=== PATIENT | male | born 2000 ===

== ENCOUNTER 2023-01-23 08:22 | Emergency (ER) | payer MEDICAID ==
[~2023-01-23] VITALS: Ht 175.3 cm; Wt 77.3 kg
[2023-01-23] MEDS ORDERED: CLON-595 PO (08:58)
[2023-01-23] MEDS ORDERED: MIRT-89 PO (08:58)
[2023-01-23] MEDS ORDERED: OLAN10TA74 PO ×2 (08:58)
[2023-01-23] MEDS ORDERED: BUSP15 PO (08:58)
[2023-01-23] MEDS ORDERED: VALP250C48 PO (08:58)
[2023-01-23] MEDS ORDERED: PALI3TAB14 PO (08:58)
[2023-01-23] MEDS ORDERED: CLON-592 PO (08:58)
[2023-01-23 09:14] LABS: BASOPHILS % (AUTO) 0.6 % (0.0-2.0); EOSINOPHILS % (AUTO) 0.8 % (1.0-6.0); HEMATOCRIT 40.7 % (41-53); HEMOGLOBIN 13.9 g/dL (13.5-17.5); LYMPHOCYTES # (AUTO) 2.1 K/uL (1.0-4.8); MEAN CORPUSCULAR HEMOGLOBIN 31.4 pg (26.0-34.0); MEAN CORPUSCULAR HGB CONC 34.2 G/dL (31.0-37.0); MEAN CORPUSCULAR VOLUME 92 fL (80-100); MONOCYTES # (AUTO) 0.5 K/uL (0.1-1.0); MONOCYTES % (AUTO) 7.3 % (2.0-9.0); NEUTROPHILS # (AUTO) 3.8 K/uL (1.8-7.7); NEUTROPHILS % (AUTO) 59.3 % (40.0-70.0); PLATELET COUNT (AUTO) 218 K/uL (150-450); RED BLOOD CELL COUNT(AUTO) 4.43 MIL/uL (4.50-5.90); RED CELL DISTRIBUTION WIDTH 12.9 % (11.5-14.5)
[2023-01-23 09:23] LABS: ANION GAP 12 mmol/L (8-16); CALCIUM, TOTAL 9.1 mg/dL (8.8-10.5); CARBON DIOXIDE 26 mmol/L (22-29); CHLORIDE 105 mmol/L (98-107); CREATININE 1.09 mg/dL (0.60-1.30); GLOMERULAR FILTR. RATE CALC > 60 mL/min (>60); GLUCOSE,RANDOM 97 mg/dL (70-110); POTASSIUM 3.8 mmol/L (3.5-5.1); SODIUM SERUM 143 mmol/L (136-145)
[2023-01-23 09:28] LABS: ALANINE AMINOTRANSFERASE 118 U/L (12-78); ALBUMIN 3.7 g/dL (3.4-5.0); ALKALINE PHOSPHATASE 51 U/L (46-116); ASPARTATE AMINOTRANSFERASE 75 U/L (15-37); BILIRUBIN,TOTAL 0.3 mg/dL (0.1-1.0); TOTAL PROTEIN, SERUM 7.3 g/dL (6.4-8.2)
[2023-01-23] MEDS ORDERED: LORazepam 2 MG/ML VIAL IM ONE ×3 (09:30→22:15)
[2023-01-23] MEDS ORDERED: ZOLPIDEM TARTRATE 10 MG TABLET PO PRN (10:45)
[2023-01-23] MEDS ORDERED: HALOPERIDOL LACTATE 5 MG/ML VIAL IM ONE (14:30)
[2023-01-23] MEDS ORDERED: DiphenhydrAMINE HCL 50 MG/ML VIAL IM ONE ×2 (14:30→21:30)
[2023-01-23] MEDS: LORazepam 2 MG TABLET PO PRN (20:18)
[2023-01-23] MEDS: HALOPERIDOL 5 MG TABLET PO PRN (20:18)
[2023-01-23] MEDS ORDERED: ZIPRASIDONE MESYLATE 20 MG/VIAL IM ONE ×2 (21:30→22:15)
[2023-01-24] MEDS: LORazepam 2 MG TABLET PO PRN ×3 (08:50→19:40)
[2023-01-24] MEDS: HALOPERIDOL 5 MG TABLET PO PRN ×3 (08:50→19:40)
[2023-01-24] MEDS ORDERED: VALPROIC ACID 250 MG CAPSULE PO ONE ×2 (13:45→21:00)
[2023-01-24] MEDS ORDERED: MIRTAZAPINE 30 MG TABLET PO ONE (13:45)
[2023-01-24] MEDS ORDERED: ZIPRASIDONE MESYLATE 20 MG/VIAL IM ONE (14:15)
[2023-01-24] MEDS ORDERED: MIRTAZAPINE 15 MG TABLET PO ONE (21:00)
[2023-01-25] MEDS ORDERED: LORazepam 2 MG/ML VIAL IM ONE (12:15)
[2023-01-25] MEDS ORDERED: ZIPRASIDONE MESYLATE 20 MG/VIAL IM ONE (12:15)
[2023-01-25] MEDS ORDERED: DiphenhydrAMINE HCL 50 MG/ML VIAL IM ONE (12:15)
[2023-01-25] MEDS: HALOPERIDOL 5 MG TABLET PO PRN (21:16)
[2023-01-25] MEDS: LORazepam 2 MG TABLET PO PRN (21:16)
[2023-01-25] MEDS ORDERED: MIRTAZAPINE 30 MG TABLET PO ONE (21:30)
[2023-01-26] MEDS: LORazepam 2 MG TABLET PO PRN (08:46)
[2023-01-26] MEDS: HALOPERIDOL 5 MG TABLET PO PRN (08:46)
[2023-01-26 08:58] LABS: COVID AG,FIA SOURCE NASAL SWAB
[2023-01-26] MEDS ORDERED: VALPROIC ACID 250 MG CAPSULE PO SCH (09:00)
[2023-01-26] MEDS ORDERED: DiphenhydrAMINE HCL 50 MG/ML VIAL IM ONE ×2 (09:00→09:15)
[2023-01-26] MEDS ORDERED: HALOPERIDOL LACTATE 5 MG/ML VIAL IM ONE ×2 (09:00→09:15)
[2023-01-26] MEDS ORDERED: LORazepam 2 MG/ML VIAL IM ONE ×2 (09:00→09:15)
[2023-01-26] MEDS ORDERED: HALOPERIDOL LACTATE 5 MG/ML VIAL ONE (09:03)
[2023-01-26] MEDS ORDERED: DiphenhydrAMINE HCL 50 MG/ML VIAL ONE (09:03)
[2023-01-26] MEDS ORDERED: ZIPRASIDONE MESYLATE 20 MG/VIAL IM ONE (14:00)
[2023-01-26] MEDS: MIRTAZAPINE 15 MG TABLET PO SCH ×2 (14:36→19:11)
[2023-01-26] MEDS ORDERED: BusPIRone HCL 15 MG TABLET PO SCH (17:30)
[2023-01-26] MEDS: VALPROIC ACID 250 MG CAPSULE PO SCH (18:55)
[2023-01-26] MEDS: BusPIRone HCL 15 MG TABLET PO SCH (18:59)
[2023-01-26] MEDS: OLANZapine 10 MG TABLET PO SCH (18:59)
[2023-01-26] MEDS ORDERED: PALIPERIDONE 3 MG ER TABLET PO SCH (21:00)
[2023-01-26] MEDS ORDERED: ClonazePAM 1 MG TABLET PO SCH (21:00)
[2023-01-26] MEDS ORDERED: MIRTAZAPINE 15 MG TABLET PO SCH (21:00)
[2023-01-27 02:17] VITALS: TEMP 98.3
[2023-01-27] MEDS ORDERED: BUSP15 PO (08:27)
[2023-01-27] MEDS ORDERED: MIRT-89 PO (08:27)
[2023-01-27] MEDS ORDERED: PALI6TAB15 PO (08:27)
[2023-01-27] MEDS ORDERED: OLAN10TA74 PO (08:27)
[2023-01-27] MEDS ORDERED: VALP250C48 PO (08:27)
[2023-01-27] MEDS ORDERED: CLON-595 PO (08:27)
[2023-01-27] MEDS: OLANZapine 10 MG TABLET PO SCH (10:38)
[2023-01-27] MEDS: BusPIRone HCL 15 MG TABLET PO SCH (10:38)
[2023-01-27] MEDS: VALPROIC ACID 250 MG CAPSULE PO SCH (10:39)
[2023-01-27 11:12] VITALS: BP 113/74; PULSE 94; RESP 17
== END 2023-01-27 11:17 | disposition admitted as inpatient to this hospital (09) ==
LOC: EMS 08:24
DX: F25.9 Schizoaffective disorder, unspecified (principal); F31.9 Bipolar disorder, unspecified; Z20.822 Contact with and (suspected) exposure to COVID-19
CPT/HCPCS: 99285; 87426; 80053; 85025; 36415; 96372; G0480; J1200; J1630; J2060; J3486